=== PATIENT | female | born 1975 | race Two or more races ===

== ENCOUNTER 2024-11-02 12:44 | Emergency (ER) | payer MEDICAID ==
[~2024-11-02] VITALS: Ht 167.6 cm; Wt 94.0 kg
[2024-11-02 12:48] VITALS: BP 127/87; TEMP 37; O2SAT 99
[2024-11-02 13:01] VITALS: PULSE 98; RESP 18; O2SAT 99
== END 2024-11-02 15:07 | disposition home or self-care (01) ==
LOC: ER 12:56
DX: Z53.21 Procedure and treatment not carried out due to patient leaving prior to being seen by health care provider (principal)